=== PATIENT | male | born 1955 | race Caucasian/White ===

== ENCOUNTER → 2016-06-10 | Outpatient (CLI) | payer OTHER ==
[2016-06-10 08:21] LABS: CHLORIDE,CL 108 mmol/L (98-110); SODIUM,NA 139 mmol/L (136-146)
== END | disposition home or self-care (01) ==
LOC: MW.CHFP 07:40
PROVIDERS: ATTEND Student in an Organized Health Care Education/Training Program
DX: I10 Essential (primary) hypertension (principal); E78.5 Hyperlipidemia, unspecified; R53.83 Other fatigue; R68.82 Decreased libido
CPT/HCPCS: 36415; 80053; 80061; 83001; 83002; 84402; 84403

== ENCOUNTER 2020-04-19 06:36 | Day surgery (SDC) | payer OTHER ==
[~2020-04-19 06:36] MED LIST: Lactated Ringers 1,000 ML IV SCH; Sodium Chloride 0.9% 10 ML SDV IV PRN; Sodium Chloride 0.9% 10 ML Syringe FLUSH PRN; Sodium Chloride 0.9% 2.5 ML Syringe FLUSH PRN
[2020-04-19] MEDS ORDERED: fentaNYL 100 MCG/2 ML SDV ONE (07:02)
[2020-04-19] MEDS ORDERED: Lidocaine 2% 5 ML SDV ONE (07:02)
[2020-04-19] MEDS ORDERED: Midazolam 1 MG/ML 2 ML SDV ONE (07:02)
[2020-04-19] MEDS ORDERED: Propofol 200 MG/20 ML SDV ONE (07:02)
--- NOTE | 2020-04-19 07:09 | PCM.PREANE ---
Preanesthetic Assessment - Anesthesia/Transfusion/Family Hx Anesthesia History: Prior Anesthesia Without Reaction Family History of Anesthesia Reaction: No Transfusion History: No Prior Transfusion(s) Intubation History: Unknown - Review of Systems General: No Symptoms Pulmonary: No Symptoms Cardiovascular: No Symptoms Gastrointestinal: Abdominal Pain, Other (h/o colon polyps) Neurological: No Symptoms Other: Reports: None - Physical Assessment Vital Signs: Last Vital Signs Temp 36.5 C 04/19/20 06:43 Pulse 63 04/19/20 06:43 Resp 15 04/19/20 06:43 BP 164/74 H 04/19/20 06:43 Pulse Ox 96 04/19/20 06:43 Height: 5 ft 7 in Weight: 97.522 kg ASA Class: 3 Mental Status: Alert & Oriented x3 Airway Class: Mallampati = 1 Dentition: Reports: Normal Dentition, Lantana(s) (4-5 on the back side) Thyro-Mental Finger Breadths: 3 Mouth Opening Finger Breadths: 3 ROM/Head Extension: Limited/Partial Lungs: Clear to Auscultation, Normal Respiratory Effort Cardiovascular: Regular Rate, Regular Rhythm - Allergies Allergies/Adverse Reactions: Allergies Allergy/AdvReac Type Severity Reaction Status Date / Time No Known Allergies Allergy Verified 04/13/20 16:01 - Blood Blood Available: No - Anesthesia Plan Pre-Op Medication Ordered: None - Acknowledgements Anesthesia Type Planned: MAC Pt an Appropriate Candidate for the Planned Anesthesia: Yes Alternatives and Risks of Anesthesia Discussed w Pt/Guardian: Yes Pt/Guardian Understands and Agrees with Anesthesia Plan: Yes PreAnesthesia Questionnaire HEENT History: Reports: None Other HEENT History: has bilateral hearing aides Cardiovascular History: Reports: High Cholesterol, Hypertension Respiratory History: Reports: Sleep Apnea Other Respiratory History: "mild sleep apnea", does not have CPAP [place] Gastrointestinal History: Reports: Colon Polyp (3 years ago, here) Other Gastrointestinal History: takes rolaids Genitourinary History: Reports: Other (See Below) Other Genitourinary History: proteinuria, chronic kidney disease Musculoskeletal History: Reports: Fracture, Gout Other Musculoskeletal History: hx fx leg and fingers Neurological History: Reports: Concussion Other Neuro History: hx of shingles Psychiatric History: Reports: Depression Endocrine/Metabolic History: Reports: Obesity/BMI 30+ (BMI 33.7) Other Endocrine/Metabolic History: states prediabetic in the past, not since weight loss A1c 5.6 per patient Hematologic History: Reports: None Immunologic History: Reports: Other (See Below) Oncologic (Cancer) History: Reports: None Other Oncologic History: removed from left hand Dermatologic History: Reports: Eczema - Past Surgical History HEENT Surgical History: Reports: Tonsillectomy GI Surgical History: Reports: Colonoscopy (x5, last one 3 years ago) Musculoskeletal Surgical History: Reports: Other (See Below) Other Musculoskeletal Surgeries/Procedures:: elbow surgery Dermatological Surgical History: Reports: None - SUBSTANCE USE Tobacco Use Status *Q: Never Tobacco User Recreational Drug Use History: No - HOME MEDS Home Medications: Home Meds Aspirin [Lo-Dose Aspirin EC] 81 mg PO DAILY 01/28/18 [History] Fish Oil/[place]-3 Fatty Acids [Fish Oil 1,000 MG] 1,000 mg PO DAILY 01/28/18 [History] Lisinopril 20 mg PO BID 01/28/18 [History] Multivitamin [Multivitamins] 1 tab PO DAILY 01/28/18 [History] allopurinoL [Zyloprim] 300 mg PO ASDIRECTED 01/28/18 [History] amLODIPine Besylate [Amlodipine Besylate] 10 mg PO QAM 01/28/18 [History] atorvaSTATin Calcium [Atorvastatin Calcium] 40 mg PO BEDTIME 01/28/18 [History] - CURRENT (IN HOUSE) MEDS Current Meds: Current Medications Lactated Ringer's (Ringers, Lactated) 1,000 mls @ 125 mls/hr IV ASDIRECTED ADDIE Last Admin: 04/19/20 06:50 Dose: 125 mls/hr Documented by: Sodium Chloride (Saline Flush) 10 ml FLUSH ASDIRECTED PRN PRN Reason: Keep Vein Open Sodium Chloride (Saline Flush) 2.5 ml FLUSH ASDIRECTED PRN PRN Reason: Keep Vein Open Sodium Chloride (Saline Flush) 10 ml FLUSH ASDIRECTED PRN PRN Reason: Keep Vein Open Sodium Chloride (Saline Flush) 2.5 ml FLUSH ASDIRECTED PRN PRN Reason: Keep Vein Open Sodium Chloride (Normal Saline) 10 ml IV ASDIRECTED PRN PRN Reason: IV Use
[2020-04-19] MEDS ORDERED: Glycopyrrolate 0.2 MG/ML SDV ONE ×2 (07:57→08:01)
--- NOTE | 2020-04-19 08:46 | PCM.POSTAN ---
POST ANESTHESIA ASSESSMENT - MENTAL STATUS Mental Status: Alert, Oriented - VITAL SIGNS Vital Signs: Last Vital Signs Temp 36.5 C 04/19/20 06:43 Pulse 77 04/19/20 08:42 Resp 15 04/19/20 08:42 BP 112/59 L 04/19/20 08:42 Pulse Ox 94 L 04/19/20 08:42 - RESPIRATORY Respiratory Status: Respiratory Rate WNL, Airway Patent, O2 Saturation Stable - CARDIOVASCULAR CV Status: Pulse Rate WNL, Blood Pressure Stable - GASTROINTESTINAL GI Status: No Symptoms - PAIN Pain Score: 0 - POST OP HYDRATION Hydration Status: Adequate & Stable - OBSERVATIONS Free Text/Narrative:: No anesthesia problems
--- NOTE | 2020-04-19 09:10 | PCM48HPAN ---
Post Anesthesia Note - EVALUATION WITHIN 48HRS OF ANESTHETIC Vital Signs in Normal Range: Yes Patient Participated in Evaluation: Yes Respiratory Function Stable: Yes Airway Patent: Yes Cardiovascular Function Stable: Yes Hydration Status Stable: Yes Pain Control Satisfactory: Yes Nausea and Vomiting Control Satisfactory: Yes Mental Status Recovered: Yes Vital Signs: Last Vital Signs Temp 36.1 C 04/19/20 08:44 Pulse 71 04/19/20 08:44 Resp 14 04/19/20 08:44 BP 121/61 04/19/20 08:44 Pulse Ox 95 04/19/20 08:44 - COMMENTS/OBSERVATIONS Free Text/Narrative:: No anesthesia problems
--- NOTE | 2020-04-19 09:22 | PCM.OPNOTE ---
- General Post-Op/Procedure Note Date of Surgery/Procedure: 04/19/20 Operative Procedure(s): Diagnostic EGD and colonoscopy Findings: Esophagitis and duodenitis. Transverse colon polyp, rectal polyp Pre Op Diagnosis: Abdominal pain, history of polyps Post-Op Diagnosis: Transverse colon polyp, rectal polyp. Duodenitis, esophagitis Anesthesia Technique: [facility] [place] Primary Surgeon: Elisabet Castillo Condition: Good Free Text/Narrative:: Intake & Output 04/18/20 04/19/20 04/19/20 22:59 06:59 14:59 Intake Total 900 Balance 900
--- NOTE | 2020-04-19 11:32 | OR ---
SURGEON: ELISABET CASTILLO MD DATE OF PROCEDURE: 04/19/2020 PREOPERATIVE DIAGNOSES: 1. Abdominal pain. 2. History of colon polyps. POSTOPERATIVE DIAGNOSES: 1. Esophagitis. 2. Duodenitis. 3. Rectal polyp. 4. Transverse colon polyp. PROCEDURES PERFORMED: Diagnostic esophagogastroduodenoscopy and colonoscopy. PRIMARY SURGEON: Elisabet Castillo MD ANESTHESIA: MAC. INSTRUMENT USED: Olympus endoscope and colonoscope. EXTENT OF EXAM: To the second portion of duodenum, to the cecum. PREPARATION: Good. LIMITATIONS: None. INDICATIONS FOR EXAMINATION: The patient is a 64-year-old male who recently developed severe upper abdominal pain. This resulted in a syncopal event. The patient also had an acute change in bowel habits along with this. The patient does have a history of colon polyps and is due this year for repeat colonoscopy. A decision was made to proceed with diagnostic EGD and colonoscopy. The patient and I discussed the procedure; expected perioperative course; and the risks including bleeding, infection, or damage to surrounding structures including perforation. The patient verbalized understanding and wishes to proceed. PROCEDURE IN DETAIL: The patient was brought into the endoscopy suite and placed in a left lateral decubitus position. A time-out was completed verifying the patient's name, age, date of , allergies, and procedure to be performed. Monitored anesthesia care was induced and a bite block was placed in the patient's mouth. Continuous oxygen was provided via nasal cannula throughout the procedure. After adequate sedation was achieved, a well-lubricated endoscope was placed in the patient's mouth and advanced under direct visualization to the second portion duodenum. This appeared normal and a photograph was taken. The scope was then fully withdrawn while examining the color, texture, anatomy, and integrity of the mucosa of the upper GI tract. The duodenal bulb had signs of duodenitis. Photographs of this were taken. I saw no evidence of any ulceration. Biopsies were taken of the duodenal bulb and sent to pathology, labeled as duodenum. The scope was brought into the stomach and a photograph was taken of the pylorus and GE junction. Both appeared anatomically normal. I saw no signs of ulceration or inflammation in the gastric mucosa. Biopsies were taken of the gastric antrum, body, and fundus and sent for histologic review and H pylori testing. The scope was then brought into the distal esophagus. The Z-line appeared slightly irregular and consistent with some distal esophagitis. Biopsies were taken just above the Z-line and sent to pathology, labeled as esophagus. The scope was removed and this portion of the procedure terminated. A digital rectal exam was performed. This exam was within normal limits. A well- lubricated colonoscope was inserted in the rectum and advanced under direct visualization to the level of the cecum. The cecum was identified by both visual and anatomic landmarks. A photograph was taken of the cecal cap; however, I was unable to retroflex the scope within the cecum due to looping of the scope more proximally. The scope was then fully withdrawn while examining the color, texture, anatomy, and integrity of the mucosa from the cecum to the anal canal. The patient was noted to have a small sessile polyp within the transverse colon. This was removed in piecemeal fashion using cold biopsy forceps. The scope was then brought into the rectum, and upon doing this, I noted a small sessile polyp proximal to the dentate line. This was removed using cold biopsy forceps and sent to pathology, labeled as rectal polyp. The scope was then retroflexed to allow visualization of the dentate line in the anal canal opening. This appeared otherwise normal. The scope was then straightened out and fully withdrawn. The cecum to anus time was 14 minutes. The patient tolerated the procedure well and was transferred to the PACU in stable condition. ENDOSCOPIC DIAGNOSES: 1. Esophagitis. 2. Duodenitis. 3. Rectal polyp. 4. Transverse colon polyp. RECOMMENDATIONS: Follow up in clinic in 2 weeks. I increased the patient's omeprazole dose to 40 mg daily. ROX ROE /[id number]
== END 2020-04-19 09:15 | disposition home or self-care (01) ==
LOC: MW.SDS 06:36
PROVIDERS: ATTEND Surgery
DX: D12.8 Benign neoplasm of rectum (principal); K29.80 Duodenitis without bleeding; K20.90 Esophagitis, unspecified without bleeding; I12.9 Hypertensive chronic kidney disease with stage 1 through stage 4 chronic kidney disease, or unspecified chronic kidney disease; N18.9 Chronic kidney disease, unspecified; G47.33 Obstructive sleep apnea (adult) (pediatric); E78.5 Hyperlipidemia, unspecified; Z98.890 Other specified postprocedural states
CPT/HCPCS: 43239; 45380; 88305; 88312; J2250; J2704; J3010; J3490; J7120; 00813